=== PATIENT | male | born 1960 | race Caucasian/White ===

== ENCOUNTER → 2018-03-02 | Day surgery (SDC) | payer MEDICARE ==
[~2018-03-02] MED LIST: FENTANYL CITRATE/PF 100MCG/2 ML INJ ONE; FLUOXETINE HCL20 MG PO; LISINOPRIL-HCT1 EACH PO; MIDAZOLAM HCL 2 MG/2 ML VIAL ONE; NUCYNTA75 MG PO; PROPOFOL IV EMULSION 10 MG/ML 50 ML VIAL ONE; [UNRECOGNIZED DRUG - OTHER] PO
[2018-03-02 08:30] VITALS: BP 108/68
--- OUTSIDE RECORDS SUMMARY | 2018-03-07 12:52 | XMS REPORT | Clinical Summary ---
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 LV Relative Wall Thickness0.45 LVOT Diameter 2.2 cm Aortic Root Diameter 3.7 cm LA Volume 14.2 cm 18 - 58 / 22 - 52 cm DOPPLER LVOT Peak Velocity 138 cm/s LVOT Peak Gradient 7.6 mmHg LVOT Mean Velocity 77.9 cm/s LVOT Mean Gradient 2.4 mmHg LVOT Velocity Time Integral 21.8 cm LVOT Stroke Volume 85.6 cm Mitral E Point Velocity 60.2 cm/s Performing Organization Address City/[facility] [address]/[facility] Phone Number SMS * OCCULT BLOOD ICT (04/06/2017 10:21 AM) Occult Blood ICT Negative NEG [facility] Specimen Stool Performing Organization Address City/[facility] [address]/[facility] Phone Number MISYS [facility] * 12 LEAD EKG (04/06/2017 9:48 AM) 12 LEAD EKG FOR 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 Measurements Intervals Arvin Rate: 121 P: 79 GA: 152 QRS: 73 QRSD: 96 T:43 QT: 324 QTc:460 Interpretive Statements Sinus tachycardia Possible Left atrial enlargement Borderline ECG Electronically Signed On 04-06-17 09:34:48 COMPUTER GRAPHICS ILLUSTRATOR by Willa Godinez M.D. Performing Organization Address [facility] [place]/[facility] [address]/[facility] Phone Number [facility] * BUNCR/LYTES POC (04/06/2017 9:18 AM) TCO2 POC 21 21 - 32 mmol/L BT MAIN-STATION 1 Chloride POC 102 98 - 107 mmol/L BT MAIN-STATION 1 Potassium POC 3.7 3.50 - 5.10 mmol/L BT MAIN-STATION 1 Sodium POC 136 136 - 145 mmol/L BT MAIN-STATION 1 Urea Nitrogen POC 16 7 - 18 mg/dL BT MAIN-STATION 1 Creatinine POC 0.9 0.6 - 1.3 mg/dL BT MAIN-STATION 1 GFR, Estimated >60 mL/min/1.73 m2 BT MAIN-STATION 1 GFR, Estim, Afr-Am >60 mL/min/1.73 m2 BT MAIN-STATION 1 Performing Organization Address [facility] [place]/[facility] [address]/[facility] Phone Number MEI BT MAIN-STATION 1 * XRAY CHEST 2 VIEWS (04/06/2017 9:16 AM) Impressions Performed At IMPRESSION: [facility] No acute thoracic abnormality. A "PRELIMINARY" report was made available via [employer] at the time of dictation by the resident indicated below. If the report is "FINALIZED" it indicates that the attending/staff radiologist has reviewed the images and agrees with the resident's interpretation. Dictated By: Néstor Adkins DO, 04/06/2017 10:22 AM I have reviewed the study and agree with the findings in this report. Signed By: Vangie Su MD, 04/06/2017 11:02 AM Narrative Performed At EXAMINATION:XRAY CHEST 2 VIEWS SMS INDICATION: SOB COMPARISON:Chest x-ray 04/03/2015 FINDINGS:PA and lateral views TUBES and LINES:None. HEART AND MEDIASTINUM:The cardiomediastinal silhouette is unremarkable. LUNGS:Lungs are well inflated.Lungs are clear. There is no evidence of pneumonia or pulmonary edema. PLEURA:No pleural effusion or pneumothorax. BONES AND SOFT TISSUES:Healed bilateral rib fracture deformities. Degenerative changes of the thoracic spine. Soft tissues are unremarkable. UPPER ABDOMEN: No free air under the diaphragm. Procedure Note Interface, Rad/Mammog In - 04/06/2017 11:06 AM COMPUTER GRAPHICS ILLUSTRATOR EXAMINATION: XRAY CHEST 2 VIEWS INDICATION: SOB COMPARISON: Chest x-ray 04/03/2015 FINDINGS: PA and lateral views TUBES and LINES: None. HEART AND MEDIASTINUM: The cardiomediastinal silhouette is unremarkable. LUNGS: Lungs are well inflated. Lungs are clear. There is no evidence of pneumonia or pulmonary edema. PLEURA: No pleural effusion or pneumothorax. BONES AND SOFT TISSUES: Healed bilateral rib fracture deformities. Degenerative changes of the thoracic spine. Soft tissues are unremarkable. UPPER ABDOMEN: No free air under the diaphragm. IMPRESSION IMPRESSION: No acute thoracic abnormality. A "PRELIMINARY" report was made available via [employer] at the time of dictation by the resident indicated below. If the report is "FINALIZED" it indicates that the attending/staff radiologist has reviewed the images and agrees with the resident's interpretation. Dictated By: Néstor Adkins DO, 04/06/2017 10:22 AM I have reviewed the study and agree with the findings in this report. Signed By: Vangie Su MD, 04/06/2017 11:02 AM Performing Organization Address City/State/[facility] Phone Number SMS * SYPHILIS SCREEN FOR INFECTION (04/06/2017 7:56 AM) Treponemal Ab Negative BT DIAGNOSTIC IMMUNOLOGY Final Report Negative BT DIAGNOSTIC IMMUNOLOGY Performing Organization Address City/[facility] [address]/[facility] Phone Number MISYS BT DIAGNOSTIC IMMUNOLOGY * VIT D, 25-HYDROXY (04/06/2017 7:56 AM) Vit D, 25-Hydroxy 17.0 (L) 30 - 100 ng/mL BT DIAGNOSTIC Comment: IMMUNOLOGY Vitamin D deficiency has been defined by the [place] of Medicine and Endocrine Society guideline as a level of serum 25-OH Vitamin D less than 20 ng/mL. The Endocrine Society further defines Vitamin D insufficiency as a level between 21 and 29 ng/mL and sufficiency as a level between 30 and 100 ng/mL. Performing Organization Address [facility] [place]/[facility] [address]/[facility] Phone Number MISYS BT DIAGNOSTIC IMMUNOLOGY * HEMOGLOBIN A1C (04/06/2017 7:56 AM) Hemoglobin A1c 5.8 4.3 - 6.1 % BT DIAGNOSTIC IMMUNOLOGY Est Average Gluc 119.8 mg/dL BT DIAGNOSTIC IMMUNOLOGY Specimen Blood Performing Organization Address [facility] [place]/[facility] [address]/[facility] Phone Number [facility] BT DIAGNOSTIC IMMUNOLOGY * TSH (04/06/2017 7:56 AM) TSH 0.57 0.36 - 3.74 uIU/mL BT MAIN-STATION 4 Specimen Blood Performing Organization Address [facility] [place]/[facility] [address]/[facility] Phone Number [facility] BT MAIN-STATION 4 * PSA (04/06/2017 7:56 AM) PSA 0.29 <4.0 ng/mL BT MAIN-STATION 4 Specimen Blood Performing Organization Address [facility] [place]/[facility] [address]/[facility] Phone Number MISYS BT MAIN-STATION 4 * FERRITIN (04/06/2017 7:56 AM) Ferritin 133.10 26.00 - 388.00 ng/mL BT MAIN-STATION 4 Specimen Blood Performing Organization Address [facility] [place]/[facility] [address]/[facility] Phone Number MISYS BT MAIN-STATION 4 * VITAMIN B12 (04/06/2017 7:56 AM) Vitamin B12 609 211 - 911 pg/mL BT MAIN-STATION 3 Specimen Blood Performing Organization Address [facility] [place]/[facility] [address]/[facility] Phone Number MISYS BT MAIN-STATION 3 * UA CHEMISTRIES (04/06/2017 7:56 AM) Color Yellow BT MAIN-STATION 3 Clarity Clear BT MAIN-STATION 3 Spec [place] 1.019 1.001 - 1.035 BT MAIN-STATION 3 pH 6.0 5 - 8 BT MAIN-STATION 3 Protein 1+ (A) NEG BT MAIN-STATION 3 Glucose Negative NEG BT MAIN-STATION 3 Ketone Negative NEG BT MAIN-STATION 3 Bilirubin Negative NEG BT MAIN-STATION 3 Nitrate Negative NEG BT MAIN-STATION 3 Urobilinogen <1.0 0.2 - 1.0 EU/dL BT MAIN-STATION 3 Leukocyte Negative NEG BT MAIN-STATION 3 Blood 1+ (A) NEG BT MAIN-STATION 3 RBC <1 0 - 4 /HPF BT MAIN-STATION 3 WBC <1 0 - 5 /HPF BT MAIN-STATION 3 Mucous Present BT MAIN-STATION 3 Specimen Urine Performing Organization Address [facility] [place]/[facility] [address]/[facility] Phone Number MISYS BT MAIN-STATION 3 * IRON (04/06/2017 7:56 AM) Iron 139 65 - 175 ug/dL BT MAIN-STATION 4 Specimen Blood Performing Organization Address [facility] [place]/[facility] [address]/[facility] Phone Number MISYS BT MAIN-STATION 4 * HIV-1/HIV-2 DIAGNOSTIC/SYMPTOMATIC (04/06/2017 7:56 AM) HIV-1/HIV-2 Negative NEG BT MAIN-STATION 3 Specimen Blood Performing Organization Address [facility] [place]/[facility] [address]/[facility] Phone Number MISYS BT MAIN-STATION 3 * HEPATITIS PANEL (04/06/2017 7:56 AM) HCV IgG Positive (A) NEG BT MAIN-STATION 3 HBsAg Negative NEG BT MAIN-STATION 3 HAV, IgM Negative NEG BT MAIN-STATION 3 HBcAb, IgM Negative NEG BT MAIN-STATION 3 Specimen Blood Performing Organization Address [facility] [place]/[facility] [address]/[facility] Phone Number MISYS BT MAIN-STATION 3 * CBC/DIFF (04/06/2017 7:56 AM) WBC 8.8 4.5 - 12.0 K/uL BT MAIN-STATION 2 RBC 5.52 4.60 - 6.20 M/uL BT MAIN-STATION 2 Hemoglobin 16.7 14.0 - 18.0 g/dL BT MAIN-STATION 2 Hematocrit 50.7 40.0 - 54.0 % BT MAIN-STATION 2 MCV 92 82 - 92 fL BT MAIN-STATION 2 MCH 30.3 27.0 - 31.0 pg BT MAIN-STATION 2 MCHC 32.9 32.0 - 36.0 g/dL BT MAIN-STATION 2 RDW 42.3 35.1 - 43.9 fL BT MAIN-STATION 2 Platelet 316 150 - 400 K/uL BT MAIN-STATION 2 Mean Platelet Volume 10.0 9.4 - 12.4 fL BT MAIN-STATION 2 Percent NRBC 0.0 BT MAIN-STATION 2 Absolute NRBC 0.00 BT MAIN-STATION 2 Neutrophil 65.8 34.0 - 67.9 % BT MAIN-STATION 2 Lymphocyte 23.2 21.8 - 50.0 % BT MAIN-STATION 2 Monocyte 7.7 5.3 - 12.0 % BT MAIN-STATION 2 Eosinophil 1.7 0.8 - 5.0 % BT MAIN-STATION 2 Basophil 0.7 0.2 - 1.2 % BT MAIN-STATION 2 Pct Immat Gran 0.9 (H) 0.0 - 0.5 BT MAIN-STATION 2 Neutrophil, Abs 5.78 (H) 1.78 - 5.36 K/uL BT MAIN-STATION 2 Lymphocyte, Abs 2.04 1.32 - 3.57 K/uL BT MAIN-STATION 2 Monocyte, Abs 0.68 0.30 - 0.82 K/uL BT MAIN-STATION 2 Eosinophil, Abs 0.15 0.04 - 0.54 K/uL BT MAIN-STATION 2 Basophil, Abs 0.06 0.01 - 0.08 K/uL BT MAIN-STATION 2 Absol Immat Gran 0.08 (H) 0.00 - 0.03 K/uL BT MAIN-STATION 2 Specimen Blood Performing Organization Address City/State/Zipcode Phone Number MISYS BT MAIN-STATION 2 * BASIC METABOLIC PANEL (04/06/2017 7:56 AM) CO2 22.8 21 - 32 mmol/L BT MAIN-STATION 4 Chloride 101 98 - 107 mmol/L BT MAIN-STATION 4 Potassium 4.2 3.50 - 5.10 mmol/L BT MAIN-STATION 4 Sodium 135 (L) 136 - 145 mmol/L BT MAIN-STATION 4 Glucose 116 (H) 70 - 99 mg/dL BT MAIN-STATION 4 Urea Nitrogen 16 7 - 18 mg/dL BT MAIN-STATION 4 Creatinine 0.90 0.60 - 1.30 mg/dL BT MAIN-STATION 4 Anion Gap 11.2 BT MAIN-STATION 4 Calcium 9.6 8.50 - 10.20 mg/dL BT MAIN-STATION 4 GFR, Estimated >60 mL/min/1.73 m2 BT MAIN-STATION 4 GFR, Estim, Afr-Am >60 mL/min/1.73 m2 BT MAIN-STATION 4 Specimen Blood Performing Organization Address [facility] [place]/[facility] [address]/[facility] Phone Number MISYS BT MAIN-STATION 4 * URINE DRUG SCREEN (03/21/2017 4:01 PM) Amphetamine Negative NEG BT MAIN-STATION 3 Comment: Calibrated Standard: D-Methamphetamine Positive if urine level >pe=5123 ng/mL Barbiturate Negative NEG BT MAIN-STATION 3 Comment: Calibrated Standard: Secobarbital Positive if urine level is >hq=430 ng/mL Benzodiazepine Negative NEG BT MAIN-STATION 3 Comment: Calibrated Standard: Lormethazepam Positive if urine level is >iw=672 ng/mL Cannabinoid Negative NEG BT MAIN-STATION 3 Comment: Calibrated Standard: 11 nor-delta(9)-THC carboxylic a Positive if urine level >or=50 Cocaine Negative NEG BT MAIN-STATION 3 Comment: Calibrated Standard: Benzoylecgonine Positive if urine level >wt=580 Opiate, Ur Positive (A) NEG BT MAIN-STATION 3 Comment: Calibrated Standard: Morphine Positive if urine level >jl=127 PCP Negative NEG BT MAIN-STATION 3 Comment: Calibrated Standard: Phencyclidine Positive if urine level >or=25 Urine Toxicology Screen results are to be used only for Medical purposes. Specimen Urine Performing Organization Address [facility] [place]/[facility] [address]/[facility] Phone Number MISYS BT MAIN-STATION 3 * 12 LEAD EKG (03/21/2017 3:22 PM) 12 LEAD EKG FOR [facility] Test Date:2017-03-21 Pat Name: RODOLFO SPENCE epartment: Room: Gender: M Wax Machine Operator: [id number] Requested By: Order Number: Wilmer bailon MD: Eliazar Zacarias M.D. Measurements Intervals Arvin Rate: 107 P: 76 GA: 154 QRS: 67 QRSD: 94 T:41 QT: 344 QTc:459 Interpretive Statements Sinus tachycardia Otherwise normal ECG Electronically Signed On 03-21-17 16:48:53 CDT by Eliazar Zacarias M.D. Performing Organization Address City/[facility] [address]/[facility] Phone Number [facility] after 03/01/2017
--- OUTSIDE RECORDS SUMMARY | 2018-03-07 12:52 | XMS REPORT | Clinical Summary ---
Author Author [facility] Organization [facility] Address Unknown Phone Unavailable Care Team Providers Care Enrollment Management Director Name Role Phone Kojo Mayberry MD PCP Allergies Not on File Current Medications Not on file Active Problems Not on file Encounters Date Type Specialty Care Team Description 02/17/2018 Transcribe Access Luis Richmond Orders MD 11/30/2017 Transcribe Physical Therapy Zev Martin MD Impingement syndrome of Orders right shoulder (Primary Dx); Complete rotatr-cuff tear/ruptr of r shoulder, not trauma 11/01/2017 Hospital Radiology Zev Martin MD Complete rotatr-cuff Encounter tear/ruptr of r shoulder, not trauma; Impingement syndrome of right shoulder 11/01/2017 Ancillary Radiology Zev Martin MD Complete rotatr-cuff Orders tear/ruptr of r shoulder, not trauma; Impingement syndrome of right shoulder 10/22/2017 Procedure Pass Radiology 10/22/2017 Transcribe Access Zev Martin MD Complete rotatr-cuff Orders tear/ruptr of r shoulder, not trauma (Primary Dx); Impingement syndrome of right shoulder after 03/01/2017 Social History Tobacco Use Types Packs/Day Years Used Date Never Assessed Sex Assigned at Date Recorded Not on file Last Filed Vital Signs Not on file Plan of Treatment Health Maintenance Due Date Last Done Comments COLON CANCER SCREENING 2012 SHINGRIX VACCINE (#1) 2012 INFLUENZA VACCINE 12/21/2017 Procedures Procedure Name Priority Date/Time Associated Diagnosis Comments BODY FLUID CONSULT Routine 01/17/2018 Results for this 1:15 PM CDT procedure are in the results section. CRYSTAL ANALYSIS Routine 01/17/2018 Osteoarthritis of left Results for this 1:15 PM CDT knee, unspecified procedure are in the osteoarthritis type results section. CELL COUNT AND Routine 01/17/2018 Osteoarthritis of left Results for this DIFFERENTIAL, BODY FLUID 1:15 PM CDT knee, unspecified procedure are in the osteoarthritis type results section. ANAEROBIC CULTURE Routine 01/17/2018 Results for this 1:15 PM CDT procedure are in the results section. GRAM STAIN Routine 01/17/2018 Results for this 1:15 PM CDT procedure are in the results section. JOINT FLUID CULTURE Routine 01/17/2018 Osteoarthritis of left Results for this 1:15 PM CDT knee, unspecified procedure are in the osteoarthritis type results section. MRI SHOULDER WO CONTRAST Routine 11/01/2017 Complete rotatr-cuff Results for this LEFT 3:36 PM CDT tear/ruptr of r shoulder, procedure are in the not trauma results section. Impingement syndrome of right shoulder after 03/01/2017 Results * Joint fluid culture (01/17/2018 1:15 PM) Joint fluid culture No growth after 4 days. [facility] DEPARTMENT OF isolate Comment: PATHOLOGY AND Specimen Information GENOMIC MEDICINE Specimen Source: Joint Fluid Specimen Site: Knee, left Specimen Joint fluid - Knee, left Performing Organization Address City/[facility]/Zipcode Phone Number [facility] DEPARTMENT OF [address] [place] [address] PATHOLOGY AND GENOMIC MEDICINE * Body fluid consult (01/17/2018 1:15 PM) Body fluid consult DoneComment: Agree with cell [facility] DEPARTMENT OF count results per DR. HORTON. PATHOLOGY AND GENOMIC MEDICINE Specimen Fluid Performing Organization Address City/[facility]/Zipcode Phone Number [facility] DEPARTMENT OF [address] [place] [address] [place] [address] PATHOLOGY AND GENOMIC MEDICINE * Crystal analysis (01/17/2018 1:15 PM) Crystal analysis specimen Knee [facility] DEPARTMENT OF type PATHOLOGY AND GENOMIC MEDICINE Monosodium urate None seen None seen [facility] DEPARTMENT OF PATHOLOGY AND GENOMIC MEDICINE CPPD crystals None seen None seen [facility] DEPARTMENT OF PATHOLOGY AND GENOMIC MEDICINE Specimen Fluid Performing Organization Address City/[facility]/Zipcode Phone Number [facility] DEPARTMENT OF [address] [place] [address] PATHOLOGY AND GENOMIC MEDICINE * Gram stain (01/17/2018 1:15 PM) Gram stain isolate Few WBC's [facility] DEPARTMENT OF No organisms seen PATHOLOGY AND Comment: GENOMIC MEDICINE Specimen Information Specimen Source: Joint Fluid Specimen Site: Knee, left Specimen Joint fluid - Knee, left Performing Organization Address City/[facility]/Zipcode Phone Number [facility] DEPARTMENT OF [address] [place] [address] PATHOLOGY AND GENOMIC MEDICINE * Anaerobic culture (01/17/2018 1:15 PM) Anaerobic culture isolate No anaerobic organisms [facility] DEPARTMENT OF isolated. PATHOLOGY AND Comment: GENOMIC MEDICINE Specimen Information Specimen Source: Joint Fluid Specimen Site: Knee, left Specimen Joint fluid - Knee, left Performing Organization Address [facility] Phone Number [facility] DEPARTMENT OF [address] [place] [address] PATHOLOGY AND GENOMIC MEDICINE * Cell count and differential, body fluid (01/17/2018 1:15 PM) [facility] fluid type Synovial [facility] DEPARTMENT OF PATHOLOGY AND GENOMIC MEDICINE Color, fluid Red [facility] DEPARTMENT OF PATHOLOGY AND GENOMIC MEDICINE Appearance, fluid Hazy [facility] DEPARTMENT OF PATHOLOGY AND GENOMIC MEDICINE RBC, fluid 17,875 /CMM [facility] DEPARTMENT OF PATHOLOGY AND GENOMIC MEDICINE Nucleated cells, fluid 250 /CMM [facility] DEPARTMENT OF PATHOLOGY AND GENOMIC MEDICINE Fluid mononuclear cell Diff to follow [facility] DEPARTMENT OF PATHOLOGY AND GENOMIC MEDICINE Neutrophils, fluid 38 % [facility] DEPARTMENT OF PATHOLOGY AND GENOMIC MEDICINE Lymphocytes, fluid 42 % [facility] DEPARTMENT OF PATHOLOGY AND GENOMIC MEDICINE Eosinophils, fluid 2 % [facility] DEPARTMENT OF PATHOLOGY AND GENOMIC MEDICINE Basophils, fluid 0 % [facility] DEPARTMENT OF PATHOLOGY AND GENOMIC MEDICINE Macrophages, fluid 18 % [facility] DEPARTMENT OF PATHOLOGY AND GENOMIC MEDICINE Specimen Fluid Performing Organization Address City/[facility]ook Phone Number [facility] [place] [address] [place] [address] PATHOLOGY AND GENOMIC MEDICINE * MRI Shoulder Wo Contrast Left (11/01/2017 3:36 PM) Narrative Performed At EXAMINATION:MRI SHOULDER WO CONTRAST LEFT [facility] CLINICAL HISTORY:M75.121 Complete rotator cuff tear or rupture of right shouldernot specified as traumatic, M75.41 Impingement syndrome of right shoulder, RCT TEAR OR RUPTUREIMPINGEMENT SYNDROME TECHNIQUE:Multiplanar multisequence MR imaging of the right shoulder was performed COMPARISON:None. FINDINGS: 1. Osseous acromial outlet. The anterior acromion is type II there is moderate arthrosis at the AC joint. The anterior acromion is mild to moderately laterally downsloping. 2. Rotator cuff: There is an extensive partial tear of the supraspinatus along its articular surface greatest anteriorly. In the anterior most corner of the tendon is attenuated to approximately 2 mm. A definite full-thickness tear is not identified although small perforation is not excluded. There is also fraying and partial articular surface tearing more posteriorly where the tendon is also attenuated to only approximately 2 mm. There is no abnormality identified of the infraspinatus. The subscapularis and teres minor muscle and tendons are intact 3. Labral and capsular structures. The anterior and posterior saba appear intact. The superior labrum demonstrates degenerative signal change with a small SLAP lesion at the base of the biceps anchor and anterior superior labrum. The intra-articular portion of the tendon of the long head of the biceps and biceps anchor appear intact. The anterior and posterior saba are intact. 4. Osseous structures and cartilaginous surfaces: There is chondromalacia in the glenohumeral joint mild in degree especially over the humeral articular surface. No bone marrow edema is visualized. There are small subchondral cysts involving the greater tuberosity greatest posteriorly. 5. Miscellaneous findings: There is a small to moderate volume of joint fluid. There is a small amount of fluid in the subacromial bursa which could represent a small full-thickness perforation of the supraspinatus tendon or bursitis. There is also a small amount of fluid in the subcoracoid bursa. There is no abnormal fluid in the suprascapular notch or spinoglenoid notch. IMPRESSION: 1. High-grade partial articular surface tear of the supraspinatus tendon both anteriorly and also posteriorly with the tendon is attenuated to only approximately 2 mm. Possibility of a small full-thickness perforation anteriorly is raised. This is not definitive. 2. Small joint effusion with a small amount of fluid in the subacromial subdeltoid bursa. 3. Small SLAP lesion [id number] Procedure Note Hm Interface, Radiology Results - 11/01/2017 6:14 PM CDT EXAMINATION: MRI SHOULDER WO CONTRAST LEFT CLINICAL HISTORY: M75.121 Complete rotator cuff tear or rupture of right shoulder not specified as traumatic, M75.41 Impingement syndrome of right shoulder, RCT TEAR OR RUPTURE IMPINGEMENT SYNDROME TECHNIQUE: Multiplanar multisequence MR imaging of the right shoulder was performed COMPARISON: None. FINDINGS: 1. Osseous acromial outlet. The anterior acromion is type II there is moderate arthrosis at the AC joint. The anterior acromion is mild to moderately laterally downsloping. 2. Rotator cuff: There is an extensive partial tear of the supraspinatus along its articular surface greatest anteriorly. In the anterior most corner of the tendon is attenuated to approximately 2 mm. A definite full-thickness tear is not identified although small perforation is not excluded. There is also fraying and partial articular surface tearing more posteriorly where the tendon is also attenuated to only approximately 2 mm. There is no abnormality identified of the infraspinatus. The subscapularis and teres minor muscle and tendons are intact 3. Labral and capsular structures. The anterior and posterior saba appear intact. The superior labrum demonstrates degenerative signal change with a small SLAP lesion at the base of the biceps anchor and anterior superior labrum. The intra- articular portion of the tendon of the long head of the biceps and biceps anchor appear intact. The anterior and posterior saba are intact. 4. Osseous structures and cartilaginous surfaces: There is chondromalacia in the glenohumeral joint mild in degree especially over the humeral articular surface. No bone marrow edema is visualized. There are small subchondral cysts involving the greater tuberosity greatest posteriorly. 5. Miscellaneous findings: There is a small to moderate volume of joint fluid. There is a small amount of fluid in the subacromial bursa which could represent a small full-thickness perforation of the supraspinatus tendon or bursitis. There is also a small amount of fluid in the subcoracoid bursa. There is no abnormal fluid in the suprascapular notch or spinoglenoid notch. IMPRESSION: 1. High-grade partial articular surface tear of the supraspinatus tendon both anteriorly and also posteriorly with the tendon is attenuated to only approximately 2 mm. Possibility of a small full-thickness perforation anteriorly is raised. This is not definitive. 2. Small joint effusion with a small amount of fluid in the subacromial subdeltoid bursa. 3. Small SLAP lesion [id number] Performing Organization Address City/State/Zipcode Phone Number [facility] [address] [place] [address] after 03/01/2017 Insurance Payer Benefit Subscriber ID Type Phone Address Plan / Group UHC MEDICARE AARP xxxxxxxxx HMO MEDICARE COMPLETE [facility] [place] [place] [address]
--- OUTSIDE RECORDS SUMMARY | 2018-03-07 12:53 | XMS REPORT ---
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 Allergies, Adverse Reactions, Alerts Allergy Name Allergy Type Status Severity Reaction(s) Onset Date Inactive Date Treating Clinician Comments No Known Allergies DA Active U 2018-01-25 00:00:00 No Known Allergies DA Active U 2013-02-17 00:00:00 Medications This patient has no known medications. Encounters Start Date/Time End Date/Time Encounter Type Admission Type Attending [facility] Care Facility Care Department Encounter ID 2018-02-20 00:00:00 2018-02-20 00:00:00 Outpatient [facility] [id number] 2018-01-30 00:00:00 2018-01-30 00:00:00 Outpatient [facility] [id number] 2018-01-05 00:00:00 2018-01-05 00:00:00 Outpatient [facility] [id number] 2017-09-22 00:00:00 2017-09-22 00:00:00 Outpatient [facility] [id number] 2017-09-07 00:00:00 2017-09-07 00:00:00 Outpatient [facility] [id number] 2017-09-05 00:00:00 2017-09-05 00:00:00 Outpatient [facility] [id number] 2017-07-19 00:00:00 2017-07-19 00:00:00 Outpatient [facility] [id number] 2017-07-14 15:43:12 2017-07-14 15:43:12 Outpatient [facility] [id number] 2017-07-06 00:00:00 2017-07-06 00:00:00 Outpatient [facility] [id number] 2017-06-23 10:53:06 2017-06-23 10:53:06 Outpatient [facility] [id number] 2017-06-20 00:00:00 2017-06-20 00:00:00 Outpatient [facility] [id number] 2017-06-16 00:00:00 2017-06-16 00:00:00 Outpatient [facility] [id number] 2017-06-09 10:42:20 2017-06-09 10:42:20 Outpatient [facility] [id number] 2017-06-07 00:00:00 2017-06-07 00:00:00 Outpatient [facility] [id number] 2017-06-01 12:14:47 2017-06-01 12:14:47 Outpatient [facility] [id number] 2017-06-01 11:10:56 2017-06-01 11:10:56 Outpatient [facility] [id number] 2017-06-01 00:00:00 2017-06-01 00:00:00 Outpatient [facility] [id number] 2017-05-05 15:49:43 2017-05-05 15:49:43 Outpatient [facility] [id number] 2017-05-03 09:54:30 2017-05-03 09:54:30 Outpatient [facility] [id number] 2017-04-06 09:09:27 2017-04-06 09:09:27 Outpatient [facility] [id number] 2017-04-06 08:52:59 2017-04-06 08:52:59 Outpatient [facility] [id number] 2017-04-06 08:04:31 2017-04-06 08:04:31 Outpatient [facility] [id number] 2017-04-06 00:00:00 2017-04-06 00:00:00 Outpatient [facility] [id number] 2017-03-21 16:01:41 2017-03-21 16:01:41 Outpatient [facility] [id number] 2017-03-21 14:33:51 2017-03-21 14:33:51 Outpatient [facility] [id number] 2017-03-14 13:55:29 2017-03-14 13:55:29 Outpatient [facility] [id number] 2017-03-10 00:00:00 2017-03-10 00:00:00 Outpatient [facility] [id number] 2017-03-10 00:00:00 2017-03-10 00:00:00 Outpatient [facility] [id number] 2017-01-27 10:59:44 2017-01-27 10:59:44 Outpatient [facility] [id number] 2017-01-14 00:00:00 2017-01-14 00:00:00 Outpatient [facility] [id number] 2016-12-01 14:20:46 2016-12-01 14:20:46 Outpatient [facility] [id number] 2016-12-01 00:00:00 2016-12-01 00:00:00 Outpatient [facility] [id number] 2016-10-14 00:00:00 2016-10-14 00:00:00 Outpatient [facility] [id number] 2016-09-22 00:00:00 2016-09-22 00:00:00 Outpatient [facility] [id number]
== END | disposition home or self-care (01) ==
LOC: OR 05:35
PROVIDERS: ATTEND Internal Medicine Gastroenterology
DX: Z12.11 Encounter for screening for malignant neoplasm of colon (principal); D12.2 Benign neoplasm of ascending colon; K64.8 Other hemorrhoids; Z71.3 Dietary counseling and surveillance; E66.9 Obesity, unspecified; I10 Essential (primary) hypertension; Z68.35 Body mass index [BMI] 35.0-35.9, adult
CPT/HCPCS: 45381; 45385; 88305; 93005; J2250; 45378